=== PATIENT | female | born 1960 | race Caucasian/White ===

== ENCOUNTER 2022-08-17 08:41 | Outpatient (CLI) | payer BC | END 2022-08-17 08:42 | disposition home or self-care (01) | LOC: CSHWCC 08:41 | PROVIDERS: ATTEND Nurse Practitioner Family | DX: S81.802D Unspecified open wound, left lower leg, subsequent encounter (principal); S91.002D Unspecified open wound, left ankle, subsequent encounter; S91.001D Unspecified open wound, right ankle, subsequent encounter; S81.801D Unspecified open wound, right lower leg, subsequent encounter; R60.0 Localized edema | CPT/HCPCS: 29581; 99205; G0463 ==

== ENCOUNTER 2022-08-19 08:12 | Outpatient (CLI) | payer BC | END 2022-08-19 08:13 | disposition home or self-care (01) | LOC: CSHWCC 08:12 | PROVIDERS: ATTEND Nurse Practitioner Family | DX: S81.802D Unspecified open wound, left lower leg, subsequent encounter (principal); S81.801D Unspecified open wound, right lower leg, subsequent encounter; S91.002D Unspecified open wound, left ankle, subsequent encounter; S91.001D Unspecified open wound, right ankle, subsequent encounter | CPT/HCPCS: 29581; 99213; G0463 ==

== ENCOUNTER → 2022-08-21 | Outpatient (CLI) | payer BC | LOC: CSHWCC 08:00 | PROVIDERS: ATTEND Nurse Practitioner Family | DX: S81.802D Unspecified open wound, left lower leg, subsequent encounter (principal); S91.002D Unspecified open wound, left ankle, subsequent encounter; S91.001D Unspecified open wound, right ankle, subsequent encounter | CPT/HCPCS: 29581 ==

== ENCOUNTER 2022-08-24 12:51 | Outpatient (CLI) | payer BC | END 2022-08-24 12:52 | disposition home or self-care (01) | LOC: CSHWCC 12:51 | PROVIDERS: ATTEND Nurse Practitioner Family | DX: S81.802D Unspecified open wound, left lower leg, subsequent encounter (principal); S91.002D Unspecified open wound, left ankle, subsequent encounter; S91.001D Unspecified open wound, right ankle, subsequent encounter; R60.0 Localized edema | CPT/HCPCS: 99214; G0463 ==

== ENCOUNTER 2022-08-26 10:35 | Outpatient (CLI) | payer BC | END 2022-08-26 10:36 | disposition home or self-care (01) | LOC: CSHWCC 10:35 | PROVIDERS: ATTEND Nurse Practitioner Family | DX: S81.802D Unspecified open wound, left lower leg, subsequent encounter (principal); R60.0 Localized edema; S91.002D Unspecified open wound, left ankle, subsequent encounter; S91.001D Unspecified open wound, right ankle, subsequent encounter; S81.801D Unspecified open wound, right lower leg, subsequent encounter | CPT/HCPCS: 29581 ==

== ENCOUNTER 2022-08-28 11:44 | Outpatient (CLI) | payer BC | END 2022-08-28 11:45 | disposition home or self-care (01) | LOC: CSHWCC 11:44 | PROVIDERS: ATTEND Nurse Practitioner Family | DX: S91.002D Unspecified open wound, left ankle, subsequent encounter (principal); S91.001D Unspecified open wound, right ankle, subsequent encounter; S81.801D Unspecified open wound, right lower leg, subsequent encounter; R60.0 Localized edema | CPT/HCPCS: 29581 ==

== ENCOUNTER 2022-08-31 08:25 | Outpatient (CLI) | payer BC | END 2022-08-31 08:26 | disposition home or self-care (01) | LOC: CSHWCC 08:25 | PROVIDERS: ATTEND Nurse Practitioner Family | DX: S91.002D Unspecified open wound, left ankle, subsequent encounter (principal); R60.0 Localized edema; S91.001D Unspecified open wound, right ankle, subsequent encounter; S81.801D Unspecified open wound, right lower leg, subsequent encounter | CPT/HCPCS: 11042; 11045; 29581 ==

== ENCOUNTER 2022-09-02 08:30 | Outpatient (CLI) | payer BC | END 2022-09-02 08:31 | disposition home or self-care (01) | LOC: CSHWCC 08:30 | PROVIDERS: ATTEND Nurse Practitioner Family | DX: S81.802D Unspecified open wound, left lower leg, subsequent encounter (principal); S91.002D Unspecified open wound, left ankle, subsequent encounter; S91.001D Unspecified open wound, right ankle, subsequent encounter; S81.801D Unspecified open wound, right lower leg, subsequent encounter; R60.0 Localized edema | CPT/HCPCS: 29581 ==

== ENCOUNTER 2022-09-04 08:29 | Outpatient (CLI) | payer BC | END 2022-09-04 08:30 | disposition home or self-care (01) | LOC: CSHWCC 08:29 | PROVIDERS: ATTEND Nurse Practitioner Family | DX: S81.802D Unspecified open wound, left lower leg, subsequent encounter (principal); S91.002D Unspecified open wound, left ankle, subsequent encounter; S91.001D Unspecified open wound, right ankle, subsequent encounter; R60.0 Localized edema | CPT/HCPCS: 29581 ==

== ENCOUNTER 2022-09-07 08:05 | Outpatient (CLI) | payer BC | END 2022-09-07 08:06 | disposition home or self-care (01) | LOC: CSHWCC 08:05 | PROVIDERS: ATTEND Nurse Practitioner Family | DX: S81.802D Unspecified open wound, left lower leg, subsequent encounter (principal); S91.002D Unspecified open wound, left ankle, subsequent encounter; S91.001D Unspecified open wound, right ankle, subsequent encounter; R60.0 Localized edema | CPT/HCPCS: 29581 ==

== ENCOUNTER 2022-09-11 12:50 | Outpatient (CLI) | payer BC | END 2022-09-11 12:51 | disposition home or self-care (01) | LOC: CSHWCC 12:50 | PROVIDERS: ATTEND Nurse Practitioner Family | DX: S81.802D Unspecified open wound, left lower leg, subsequent encounter (principal); S91.002D Unspecified open wound, left ankle, subsequent encounter; S91.001D Unspecified open wound, right ankle, subsequent encounter; R60.0 Localized edema | CPT/HCPCS: 29581 ==

== ENCOUNTER 2022-09-14 12:56 | Outpatient (CLI) | payer BC | END 2022-09-14 12:57 | disposition home or self-care (01) | LOC: CSHWCC 12:56 | PROVIDERS: ATTEND Nurse Practitioner Family | DX: S91.002D Unspecified open wound, left ankle, subsequent encounter (principal); S91.001D Unspecified open wound, right ankle, subsequent encounter; S81.801D Unspecified open wound, right lower leg, subsequent encounter | CPT/HCPCS: 29581 ==

== ENCOUNTER 2022-09-16 15:02 | Outpatient (CLI) | payer BC | END 2022-09-16 15:03 | disposition home or self-care (01) | LOC: CSHWCC 15:02 | PROVIDERS: ATTEND Nurse Practitioner Family | DX: S81.802D Unspecified open wound, left lower leg, subsequent encounter (principal); S91.002D Unspecified open wound, left ankle, subsequent encounter; R60.0 Localized edema; S91.001D Unspecified open wound, right ankle, subsequent encounter; S81.801D Unspecified open wound, right lower leg, subsequent encounter ==

== ENCOUNTER 2022-09-18 08:45 | Outpatient (CLI) | payer BC | END 2022-09-18 08:46 | disposition home or self-care (01) | LOC: CSHWCC 08:45 | PROVIDERS: ATTEND Nurse Practitioner Family | DX: R60.1 Generalized edema (principal); S81.802D Unspecified open wound, left lower leg, subsequent encounter; S91.002D Unspecified open wound, left ankle, subsequent encounter | CPT/HCPCS: 29581 ==

== ENCOUNTER 2022-09-21 08:11 | Outpatient (CLI) | payer BC | END 2022-09-21 08:12 | disposition home or self-care (01) | LOC: CSHWCC 08:11 | PROVIDERS: ATTEND Nurse Practitioner Family | DX: M79.604 Pain in right leg (principal); M79.605 Pain in left leg | CPT/HCPCS: 99213; G0463 ==

== ENCOUNTER 2022-09-29 10:37 | Outpatient (CLI) | payer BC | END 2022-09-29 10:38 | disposition home or self-care (01) | LOC: CSHMAMMO 10:37 | PROVIDERS: ATTEND Internal Medicine Rheumatology | DX: M81.0 Age-related osteoporosis without current pathological fracture (principal); M85.852 Other specified disorders of bone density and structure, left thigh | CPT/HCPCS: 77080 ==

== ENCOUNTER 2022-09-30 09:10 | Outpatient (CLI) | payer BC | END 2022-09-30 09:11 | disposition home or self-care (01) | LOC: CSHWCC 09:10 | PROVIDERS: ATTEND Nurse Practitioner Family | DX: S91.001D Unspecified open wound, right ankle, subsequent encounter (principal); S91.002D Unspecified open wound, left ankle, subsequent encounter; S81.801D Unspecified open wound, right lower leg, subsequent encounter; S81.802D Unspecified open wound, left lower leg, subsequent encounter | CPT/HCPCS: 29581 ==

== ENCOUNTER 2022-10-02 08:24 | Outpatient (CLI) | payer BC | END 2022-10-02 08:25 | disposition home or self-care (01) | LOC: CSHWCC 08:24 | PROVIDERS: ATTEND Nurse Practitioner Family | DX: S91.002D Unspecified open wound, left ankle, subsequent encounter (principal); S91.001D Unspecified open wound, right ankle, subsequent encounter; S81.801D Unspecified open wound, right lower leg, subsequent encounter; R60.0 Localized edema | CPT/HCPCS: 29581 ==

== ENCOUNTER 2022-10-09 09:48 | Outpatient (CLI) | payer BC | END 2022-10-09 09:49 | disposition home or self-care (01) | LOC: CSHWCC 09:48 | PROVIDERS: ATTEND Nurse Practitioner Family | DX: S91.002D Unspecified open wound, left ankle, subsequent encounter (principal); S91.001D Unspecified open wound, right ankle, subsequent encounter; S81.801D Unspecified open wound, right lower leg, subsequent encounter; R60.0 Localized edema | CPT/HCPCS: 29581 ==

== ENCOUNTER 2022-10-16 08:03 | Outpatient (CLI) | payer BC | END 2022-10-16 08:04 | disposition home or self-care (01) | LOC: CSHWCC 08:03 | PROVIDERS: ATTEND Nurse Practitioner Family | DX: S91.002D Unspecified open wound, left ankle, subsequent encounter (principal); R60.0 Localized edema ==

== ENCOUNTER 2022-10-20 10:23 | Outpatient (CLI) | payer BC | END 2022-10-20 10:24 | disposition home or self-care (01) | LOC: CSHRAD 10:23 | PROVIDERS: ATTEND Internal Medicine | DX: C90.00 Multiple myeloma not having achieved remission (principal) | CPT/HCPCS: 77075 ==

== ENCOUNTER 2022-10-23 09:16 | Outpatient (CLI) | payer BC | END 2022-10-23 09:17 | disposition home or self-care (01) | LOC: CSHWCC 09:16 | PROVIDERS: ATTEND Nurse Practitioner Family | DX: S91.002D Unspecified open wound, left ankle, subsequent encounter (principal); S91.001D Unspecified open wound, right ankle, subsequent encounter; S81.801D Unspecified open wound, right lower leg, subsequent encounter; R60.0 Localized edema | CPT/HCPCS: 29581 ==

== ENCOUNTER 2022-11-02 08:27 | Outpatient (CLI) | payer BC | END 2022-11-02 08:28 | disposition home or self-care (01) | LOC: CSHWCC 08:27 | PROVIDERS: ATTEND Nurse Practitioner Family | DX: S91.002D Unspecified open wound, left ankle, subsequent encounter (principal); S91.001D Unspecified open wound, right ankle, subsequent encounter; S81.801D Unspecified open wound, right lower leg, subsequent encounter | CPT/HCPCS: 29581 ==

== ENCOUNTER 2022-11-06 13:56 | Outpatient (CLI) | payer BC | END 2022-11-06 13:57 | disposition home or self-care (01) | LOC: CSHWCC 13:56 | PROVIDERS: ATTEND Nurse Practitioner Family | DX: S91.002D Unspecified open wound, left ankle, subsequent encounter (principal); R60.0 Localized edema | CPT/HCPCS: 29581 ==

== ENCOUNTER 2022-11-27 08:01 | Outpatient (CLI) | payer BC | END 2022-11-27 08:02 | disposition home or self-care (01) | LOC: CSHWCC 08:01 | PROVIDERS: ATTEND Nurse Practitioner Family | DX: S91.001D Unspecified open wound, right ankle, subsequent encounter (principal); S91.002D Unspecified open wound, left ankle, subsequent encounter; R60.0 Localized edema ==

== ENCOUNTER 2022-12-18 08:50 | Outpatient (CLI) | payer BC | END 2022-12-18 08:51 | disposition home or self-care (01) | LOC: CSHWCC 08:50 | PROVIDERS: ATTEND Nurse Practitioner Family | DX: R60.0 Localized edema (principal) | CPT/HCPCS: 99213; G0463 ==

== ENCOUNTER 2024-06-08 09:04 | Outpatient (CLI) | payer MEDICARE, OTHER | END 2024-06-08 09:05 | disposition home or self-care (01) | LOC: CSHCT 09:04 | PROVIDERS: ATTEND Family Medicine | DX: Z12.2 Encounter for screening for malignant neoplasm of respiratory organs (principal); Z87.891 Personal history of nicotine dependence; R59.0 Localized enlarged lymph nodes; D47.2 Monoclonal gammopathy | CPT/HCPCS: 71271; 80053; 83883; 84155; 84165; 85025 ==